=== PATIENT | male | born 1995 | race Two or more races ===

== ENCOUNTER 2016-12-25 23:21 | Emergency (ER) | payer SELFPAY ==
[~2016-12-25] VITALS: Ht 175.3 cm; Wt 81.6 kg
[2016-12-25] MEDS ORDERED: NKM (23:29)
[2016-12-26] MEDS ORDERED: Bacitracin Oint UD TOPIC ONE (00:38)
--- NOTE | 2016-12-26 01:35 | Emergency Room Report ---
History of Present Illness General Chief Complaint: Laceration Source: Patient Present Illness HPI Patient was drinking alcohol and fell and hit his forehead 23:00. He states he did not loose consciousness. There was bleeding which was controlled with pressure. He denies he has pain. No neck pain. No fevers, cough, chest pain, NVD, other extremity pain. States tetanus UTD. Allergies: Coded Allergies: No Known Allergies (Unverified , 12/25/16) Patient History Past Medical History: see triage record Social History: Reports: alcohol use, Denies: smoking Social History Narrative unemployed Reviewed Nursing Documentation: PMH: Agreed, PSxH: Agreed Nursing Documentation-PMH Past Medical History: No Stated History Review of Systems All Other Systems: negative except mentioned in HPI Physical Exam Vital Signs Date Time Temp Pulse Resp B/P Pulse Ox O2 Delivery O2 Flow Rate FiO2 12/25/16 23:25 97.9 109 16 127/72 95 Room Air Sp02 EP Interpretation: reviewed, normal - though slightly low as interpreted by me General Appearance: no apparent distress, GCS 15, other - slurring words Head: normocephalic, other - no step off Eyes: bilateral eye PERRL, bilateral eye Scleral Injection ENT: moist mucus membranes Neck: full range of motion, supple, no bony tend Respiratory: chest non-tender, lungs clear, normal breath sounds Cardiovascular #1: regular rate, rhythm Cardiovascular #2: 2+ radial (R) Gastrointestinal: normal inspection, normal bowel sounds, non tender, no mass, non-distended Musculoskeletal: back normal, gait/station normal - sl ataxic, normal range of motion Neurologic: alert, oriented x3, mentally impaired teacher III-XII nml as tested - with nystagmus, motor strength/tone normal, DTRs symmetric, sensory intact, normal gait Psychiatric: other - inebriated Skin: laceration - L forehead and scalp = 6 cm C shaped flap on forehead and into scalp Procedures Laceration/Wound Repair Laceration/Wound Repair : Consent: Verbal Wound Location: head, face Wound's Depth, Shape: into muscle, flap, contused tissue Wound Length (cm): 6 Wound Explored: clean Irrigated w/ Saline (ccs): 30 Betadine Prep?: Yes Anesthesia: Lidocaine w/ Epi Wound Debrided: none Wound Repaired With: sutures Suture Size/Type: 5:0, proline, nylon Layer Closure?: Yes Deep Layer Suture Size/Type: 6:0, 5:0, other - vicryl Sterile Dressing Applied?: Yes Patient Tolerated: Well Complications: None Progress 3 layer closure - periosteum intact. Shear injury also. Muscle approximated with 5-0 vicryl. Bleeding controlled. Subcuticular with 6-0 vicryl. Dermis closed with 5-0 prolene and 6-0 ethilon. Medical Decision Making Diagnostic Impression: Primary Impression: Facial laceration Qualified Codes: S01.81XA - Laceration without foreign body of other part of head, initial encounter Additional Impressions: Head injury Qualified Codes: S09.90XA - Unspecified injury of head, initial encounter Alcohol intoxication Qualified Codes: F10.129 - Alcohol abuse with intoxication, unspecified ER Course Patient with facial and scalp laceration after fall. Needs sutures. Will also eval for possible bleed/fx with CT head. Tetanus UTD. Complex lac repair - part on face. Tolerated well. Patient stable for outpatient observation and treatment. (Here with family.) CT/MRI/US Diagnostic Results CT/MRI/US Diagnostic Results : Imaging Test Ordered: head Impression nl brain, bone. ST changes c/w lac Last Vital Signs Date Time Temp Pulse Resp B/P Pulse Ox O2 Delivery O2 Flow Rate FiO2 12/26/16 03:08 97.9 16 127/72 95 Room Air 12/25/16 23:25 109 Status: improved Disposition: HOME, SELF-CARE Condition: Improved Scripts Bacitracin (Bacitracin) 28.4 Gm Oint...g. 1 APPLIC TOPIC BID, #10 GM Prov: Bryson Garcia M.D. 12/26/16 Ibuprofen* (MOTRIN*) 600 Mg Tablet 600 MG ORAL Q6H Y for For Pain, #20 TAB Prov: Bryson Garcia M.D. 12/26/16 Referrals: NOT CHOSEN [facility]/,REFERRING (PCP) Bryson Garcia M.D. December 26, 2016 01:35
[2016-12-26] MEDS ORDERED: IBUPROFEN600 MG ORAL (01:37)
[2016-12-26] MEDS ORDERED: BACITRACIN15 GM TOPIC (01:37)
[2016-12-26 03:08] VITALS: BP 127/72
--- NOTE | 2016-12-26 08:41 | Diagnostic Imaging Report ---
Indication: Head trauma. Headache Technique: Contiguous 5 mm thick transaxial imaging of the head obtained in a Siemens Sensation [address] scanner. Soft tissue and bone windows generated. Total Dose length Product (DLP): [address] Dose Index Volume (CTDIvol): 70.38 mGy Comparison: none Findings: The size and configuration of the cortical sulci, basal cisterns, and ventricles are within normal limits for age. There is no mass effect, midline shift, or edema identified. There is no evidence of acute hemorrhage or abnormal intra-axial or extra-axial fluid collections. No skull fracture seen. There is moderate swelling of the extracranial soft tissues over the left frontal and temporal regions with soft tissue air noted. Impression: No mass effect, edema or acute bleed. Left-sided scalp laceration/contusion. The CT scanner at [facility] is accredited by the [employer] and the scans are performed using protocols designed to limit radiation exposure to as low as reasonably achievable to attain images of sufficient resolution adequate for diagnostic evaluation.
== END 2016-12-26 02:00 | disposition home or self-care (01) ==
LOC: EMR 23:35
DX: S01.81XA Laceration without foreign body of other part of head, initial encounter (principal); S09.90XA Unspecified injury of head, initial encounter; F10.129 Alcohol abuse with intoxication, unspecified; W19.XXXA Unspecified fall, initial encounter; Y93.9 Activity, unspecified; Y92.9 Unspecified place or not applicable
CPT/HCPCS: 70450